=== PATIENT | female | born 1945 | race Caucasian/White ===

== ENCOUNTER → 2018-04-02 10:51 | Outpatient (CLI) | payer MEDICARE, BC ==
[~2018-04-02 10:51] MED LIST: ADVAIR HFA [SP]12 GM INH; ALBUTEROL1.25 MG/3 INH; ATROVENT HFA12.9 GM INH; COZAAR100 MG PO; PROTONIX40 MG PO; PROZAC20 MG PO; TIROSINT88 MCG PO
[2018-04-02 12:29] LABS: BASOPHILS 0.2 % (0-2); EOSINOPHILS 0.3 % (0-7); HEMATOCRIT 38.1 % (36.0-48.0); IMMATURE GRANULOCYTES 0.7 % (0-5); LYMPHOCYTES 27.5 % (15-50); MCH 30.6 pg (26.0-34.0); MCHC 34.1 g/dL (31.0-37.0); MCV 89.6 fL (80.0-100.0); MEAN PLATELET VOLUME 9.2 fL (7.4-10.4); NEUTROPHILS 63.3 % (40-80); PLATELET COUNT 242 10x3/uL (130-400); RBC 4.25 10x6/uL (4.00-5.40); RDW 14.3 % (11.5-14.5); WBC 5.8 10x3/uL (4.8-10.8)
[2018-04-02 12:58] LABS: % SATURATION 22 % (15-55); IRON 88 ug/dl (35-150); TOTAL IRON BIND CAPACITY 392 ug/dl (260-445); UNSAT IRON BIND CAPACITY 304 ug/dl (150-375)
[2018-04-02 13:00] LABS: INR 1.02 (0.85-1.17); PROTIME 12.9 SECONDS (11.6-15.0)
[2018-04-02 13:11] LABS: ALBUMIN 3.5 g/dL (3.4-5.0); ALKALINE PHOSPHATASE 82 U/L (46-116); ALT (SGPT) 54 U/L (10-68); BILIRUBIN - DIRECT 0.09 mg/dL (0.00-0.30); BILIRUBIN - INDIRECT 0.37 mg/dL (0.00-1.00); BILIRUBIN - TOTAL 0.46 mg/dL (0.2-1.3); CALC OSMOLALITY 264 mosm/kg (275-300); CALCIUM 8.4 mg/dL (8.5-10.1); CARBON DIOXIDE 25.3 mmol/L (21.0-32.0); CHLORIDE - SERUM 96 mmol/L (98-107); CHOL - HDL RATIO 3.2 ratio (2.3-4.1); CHOLESTEROL, TOTAL 185 mg/dL (0-200); CREATININE - SERUM 0.7 mg/dL (0.6-1.3); FERRITIN 32 ng/mL (3-244); GAMMA GT 26 U/L (5-85); GLUCOSE 94 mg/dL (74-106); HDL CHOLESTEROL 58 mg/dL (32-96); LDL CHOLESTEROL 111 mg/dL (0-100); LDL-HDL RATIO 1.9 ratio (1.5-3.5); POTASSIUM - SERUM 3.5 mmol/L (3.5-5.1); PROTEIN - SERUM 6.8 g/dL (6.4-8.2); SODIUM 132 mmol/L (136-145); TRIGLYCERIDE 82 mg/dL (30-200); UREA NITROGEN 12 mg/dL (7-18); eGFR NON AFRICAN AMERICAN 87 mL/min (90-120)
[2018-04-03 08:16] LABS: HAPTOGLOBIN 189 mg/dL (34-200)
[2018-04-03 11:12] LABS: HEPATITIS C ANTIBODY <0.1 S/CO RAT (0.0-0.9)
[2018-04-04 18:06] LABS: MITOCHONDRIAL ANTIBODY <20.0 Units (0.0-20.0)
[2018-04-05 12:12] LABS: ANA REFLEX - DIRECT Negative (Negative)
[2018-04-12 11:14] VITALS: BMI 33.7
== END | disposition home or self-care (01) ==
LOC: D.LAB 10:51
PROVIDERS: Internal Medicine Gastroenterology
DX: K57.92 Diverticulitis of intestine, part unspecified, without perforation or abscess without bleeding (principal); K59.00 Constipation, unspecified; R93.89 Abnormal findings on diagnostic imaging of other specified body structures

== ENCOUNTER 2018-04-12 08:40 | Outpatient (CLI) | payer MEDICARE ==
[~2018-04-12] VITALS: Ht 160 cm; Wt 86.4 kg
[2018-04-12 09:15] LABS: BASOPHILS 0.1 % (0-2); EOSINOPHILS 0.9 % (0-7); HEMATOCRIT 37.5 % (36.0-48.0); HEMOGLOBIN 12.8 g/dL (12-16); IMMATURE GRANULOCYTES 0.7 % (0-5); LYMPHOCYTES 19.7 % (15-50); MCH 31.1 pg (26.0-34.0); MCHC 34.1 g/dL (31.0-37.0); MEAN PLATELET VOLUME 8.9 fL (7.4-10.4); MONOCYTES 10.9 % (2-11); NEUTROPHILS 67.7 % (40-80); PLATELET COUNT 257 10x3/uL (130-400); RBC 4.12 10x6/uL (4.00-5.40); RDW 14.7 % (11.5-14.5); WBC 6.9 10x3/uL (4.8-10.8)
[2018-04-12 09:44] LABS: INR 0.97 (0.85-1.17); PROTIME 12.3 SECONDS (11.6-15.0)
[2018-04-12 09:46] LABS: CALC OSMOLALITY 266 mosm/kg (275-300); CALCIUM 8.1 mg/dL (8.5-10.1); CARBON DIOXIDE 25.5 mmol/L (21.0-32.0); CHLORIDE - SERUM 98 mmol/L (98-107); CREATININE - SERUM 0.7 mg/dL (0.6-1.3); GLUCOSE 91 mg/dL (74-106); SODIUM 133 mmol/L (136-145); UREA NITROGEN 15 mg/dL (7-18); eGFR NON AFRICAN AMERICAN 87 mL/min (90-120)
[2018-04-12] MEDS ORDERED: COZAAR100 MG PO (11:04)
[2018-04-12] MEDS ORDERED: ADVAIR HFA [SP]12 GM INH (11:05)
[2018-04-12] MEDS ORDERED: PROZAC20 MG PO (11:05)
[2018-04-12] MEDS ORDERED: TIROSINT88 MCG PO (11:05)
[2018-04-12] MEDS ORDERED: PROTONIX40 MG PO (11:05)
[2018-04-12] MEDS ORDERED: ALBUTEROL1.25 MG/3 INH (11:06)
[2018-04-12] MEDS ORDERED: ATROVENT HFA12.9 GM INH (11:06)
[2018-04-12 11:14] VITALS: BP 167/77; Ht 160 cm; Wt 86.4 kg
--- NOTE | 2018-04-12 12:59 | NUR ---
1250 SEE POST PROCEDURE CHECKLIST FOR VITAL SIGN TRENDS
--- NOTE | 2018-04-12 13:02 | NUR ---
1255 REG DIET SERVED.
--- NOTE | 2018-04-12 13:10 | NUR ---
1305 EATING LUNCH, DENIES NEEDS, NO CHANGES IN DRESSING SITE, NO HEMATOMA.
--- NOTE | 2018-04-12 13:56 | NUR ---
1350 NO BLEEDING NO HEMATOMA, FRIENDS AT SIDE
== END 2018-04-12 16:20 | disposition home or self-care (01) ==
LOC: D.SP 08:40 → D.CT 11:00 → D.SP 16:20
PROVIDERS: General Practice
DX: R93.89 Abnormal findings on diagnostic imaging of other specified body structures (principal)

== ENCOUNTER → 2018-11-29 10:24 | Outpatient (CLI) | payer MEDICARE ==
[2018-04-12 11:14] VITALS: BMI 33.7
== END | disposition home or self-care (01) ==
LOC: D.RT 10:24
PROVIDERS: ATTEND Internal Medicine Pulmonary Disease
DX: J44.9 Chronic obstructive pulmonary disease, unspecified (principal)

== ENCOUNTER → 2019-03-08 09:05 | Outpatient (CLI) | payer MEDICARE ==
[2018-04-12 11:14] VITALS: BMI 33.7
== END | disposition home or self-care (01) ==
LOC: D.RT 02-18 11:00
PROVIDERS: ATTEND Internal Medicine Pulmonary Disease
DX: J44.9 Chronic obstructive pulmonary disease, unspecified (principal); J98.11 Atelectasis